=== PATIENT | female | born 1970 | race Caucasian/White ===

== ENCOUNTER 2025-08-04 09:32 | Outpatient (AMB) | payer OTHER, SELFPAY ==
--- NOTE | 2025-08-04 09:47 | MHC.PC.OV ---
Vital Signs 08/04/25 09:54 08/04/25 09:57 Height 5 ft 3.98 in Weight 318 lb 8 oz BMI 54.7 BP 146/74 H 146/72 H Blood Pressure Location Lt brachial Lt brachial Position Sitting Sitting Respiration 14 Pulse 75 Pulse Source Pulse Oximeter Temp 99 F Temp Source Oral Pulse Oximetry (%) 97 Oxygen Delivery Method Room Air Intake Visit Reasons: [employer]ST Requesting a PE Intake Note: New patient visit Card Clothier Required: No Allergies No Known Allergies Allergy (Verified 08/04/25 09:48) Tobacco use date assessed: 08/04/25 Dental Screening Dental Screen Date: 08/04/25 Did you have a dental visit in the last 12 months?: No Did you have a dental problem in the last 6 months where you did not have access to dental care?: No Was dental information given to patient?: Patient has dentist HPI HPI Comments History of Present Illness Details The patient is a 55 year old female with a past medical history of hypertension, hyperlipidemia, osteoarthritis presenting to [facility] & for CPE. Transferring from [facility]-records not yet received MSK: knee OA-left> right. Cortisone shots previously were not very helpful. Declines referral at present. Rosacea:Does not follow with dermatology but has seen them in the past Heme/Onc: Right breast lumpectomy & radiation. Dr Mcdaniel. Mammo 11/2024. Will follow up in November HOSPICE RN-referred today Tdap- ROS CONSTITUTIONAL: Denies weight loss, fever and chills. HEENT: Denies changes in vision and hearing. RESPIRATORY: Denies SOB and cough. CV: Denies palpitations and CP GI: Denies abdominal pain, nausea, vomiting and diarrhea. : Denies dysuria and urinary frequency. MSK: Denies new myalgia and joint pain. SKIN: Denies rash and pruritus. NEUROLOGICAL: Denies headache PSYCHIATRIC: Denies recent changes in mood. PHYSICAL EXAM: GENERAL: Alert and oriented x 3. NAD EYES: EOMI. Anicteric. HENT: Moist mucous membranes. No scleral icterus. No cervical lymphadenopathy. LUNGS: Clear to auscultation bilaterally. CARDIOVASCULAR: Regular rate and rhythm. No murmur. No JVD. ABDOMEN: Soft, non-tender +bs EXTREMITIES: No edema. Non-tender. SKIN: No rashes or lesions. Warm. NEUROLOGIC: No focal neurological deficits. CN II-XII grossly intact PSYCHIATRIC: Cooperative. Appropriate mood and affect [facility] Social History Housing: Apartment Patient Tobacco Use Status: Never used Tobacco e-Cigarette/Vaping Use: Never Used Second Hand Smoke Exposure: No service: No Current occupational status: employed Current occupation: [employer] Current occupational exposures/hazards: No Cognitive needs: No Hearing needs: No Vision needs: Yes (glasses) Questionnaire PHQ-9 Over the last 2 weeks, how often have you been bothered by any of the following problems? 1. Little interest or pleasure in doing things: not at all 2. Feeling down, depressed, or hopeless: not at all 3. Trouble falling or staying asleep, or sleeping too much: not at all 4. Feeling tired or having little energy: more than half the days 5. Poor appetite or overeating: more than half the days 6. Feeling bad about yourself - or that you are a failure or have let yourself or your family down: not at all 7. Trouble concentrating on things, such as reading the newspaper or watching television: not at all 8. Moving or speaking so slowly that other people could have noticed. Or the opposite - being so fidgety or restless that you have been moving around a lot more than usual: not at all 9. Thoughts that you would be better off or of hurting yourself in some way: not at all Total score: 4 Depression Screening Interpretation: Positive Depression Screening Done: Yes 28314 - PHQ-9 Billing: Yes Source: Developed by Drs. Rajeev Campuzano, Obdulia Mary, Benoit Wood and colleagues, with an educational jacqueline from [employer]. Thrive Questionnaire Date Thrive assessed: 07/28/25 I am a: Patient What is your living situation today?: I have a steady place to live Within the past 12 months, did the food you bought not last and you didn't have the money to get more?: Never true Within the past 12 months, did you worry whether your food would run out before you got money to buy more?: Never true Do you have trouble paying for medicines?: No Do you have trouble getting transportation to medical appointments?: No Do you have trouble paying your heating and electricity bill?: No Do you have trouble taking care of your child, family member or friend?: No Do you have trouble with day-to-day activities such as bathing, preparing meals, shopping, managing finances, etc.?: No Are you currently unemployed and looking for a job?: No Are you interested in more education?: No Please select the resources that you would like help with: None Currently or been in a relationship where the following occur: No concerns reported THRIVE Score: 0 AUDIT C Alcohol Use Questionnaire (AUDIT-C) 1. How often do you have a drink containing alcohol?: Monthly or less 2. How many drinks containing alcohol do you have on a typical day when you are drinking?: 1 or 2 3. How often do you have six or more drinks on one occasion?: Never Total Score: 1 CHICO-7 AMB Questionnaire CHICO-7 Date CHICO - 7 assessed: 08/04/25 Feeling nervous, anxious, or on edge: 0 = Not at all Not being able to stop or control worryin = Not at all Worrying too much about different things: 0 = Not at all Trouble relaxin = Not at all Being so restless that it is hard to sit still: 0 = Not at all Becoming easily annoyed or irritable: 0 = Not at all Feeling afraid as if something awful might happen: 0 = Not at all Total CHICO-7 score (0-4 normal; 5-9 mild; 10-14 moderate; 15-21 severe): 0 Source: Developed by Drs. Rajeev Campuzano, Obdulia Mary, Benoit Wood and colleagues, with an educational jacqueline from [employer]. CHICO-7 Assessment Billing CHICO-7 Assessment Tool: CHICO-7 Assessment 91609 Physical exam (Primary Care) Vital Signs: Last Vital Signs Temp 99 F 08/04/25 09:54 Pulse 75 08/04/25 09:54 Resp 14 08/04/25 09:54 BP 146/72 H 08/04/25 09:57 Pulse Ox 97 08/04/25 09:54 Oxygen Delivery Method Room Air 08/04/25 09:54 BMI result Body Mass Index 54.7 Tobacco/Smoking Status: Tobacco use Status Tobacco use date assessed 08/04/25 08/04/25 09:57 Patient Tobacco Use Status Never used Tobacco 08/04/25 09:57 e-Cigarette/Vaping Use Never Used 08/04/25 09:57 PHQ-9: PHQ-9 Score PHQ-9: Total score 4 08/04/25 10:10 Depression Screening Interpretation: Positive Thrive Assessment: Date of Thrive Assessment Date Thrive assessed 07/28/25 08/04/25 09:50 Currently or been in a relationship where the following occur: No concerns reported Coding Level of Care Code New Pt Level 4 (98414) Complex EM visit Add On G2211 Diagnoses Physical exam Z00.00 Additional Codes CHICO-7 Assessment Billing - CHICO-7 Assessment Tool: CHICO-7 Assessment 85808 ([id number]) PHQ-9 - 26525 - PHQ-9 Billing: Yes ([id number]) Assessment & Plan Assessment & Plan (1) Physical exam: Code(s): Z00.00 - Encounter for general adult medical examination without abnormal findings Category: Medical Plan 55 year old female to establish care Past medical surgical social reviewed HTN-controlled on current medications Preventive measures for age discussed Cologuard test ordered Referral placed to scanning supervisor Orders: Orders Comprehensive Met. Panel 08/04/25 E78.5 - Hyperlipidemia, unspecified, I10 - Essential (primary) hypertension, R35.89 - Other polyuria, Z13.0 - Encounter for screening for diseases of the blood and blood-forming organs and certain disorders involving the immune mechanism, Z13.228 - Encounter for screening for other metabolic disorders Lipid Panel 08/04/25 E78.5 - Hyperlipidemia, unspecified, I10 - Essential (primary) hypertension, R35.89 - Other polyuria, Z13.0 - Encounter for screening for diseases of the blood and blood-forming organs and certain disorders involving the immune mechanism, Z13.228 - Encounter for screening for other metabolic disorders Complete Blood Count Man Dif 08/04/25 E78.5 - Hyperlipidemia, unspecified, I10 - Essential (primary) hypertension, R35.89 - Other polyuria, Z13.0 - Encounter for screening for diseases of the blood and blood-forming organs and certain disorders involving the immune mechanism, Z13.228 - Encounter for screening for other metabolic disorders TSH reflex Free T4 08/04/25 E78.5 - Hyperlipidemia, unspecified, I10 - Essential (primary) hypertension, R35.89 - Other polyuria, Z13.0 - Encounter for screening for diseases of the blood and blood-forming organs and certain disorders involving the immune mechanism, Z13.228 - Encounter for screening for other metabolic disorders Hemoglobin A1c 08/04/25 E78.5 - Hyperlipidemia, unspecified, I10 - Essential (primary) hypertension, R35.89 - Other polyuria, Z13.0 - Encounter for screening for diseases of the blood and blood-forming organs and certain disorders involving the immune mechanism, Z13.228 - Encounter for screening for other metabolic disorders Referrals Cologuard Test Z12.11 - Encounter for screening for malignant neoplasm of colon, Z12.12 - Encounter for screening for malignant neoplasm of rectum PAY AGENT Referral Z12.4 - Encounter for screening for malignant neoplasm of cervix, Z85.3 - Personal history of malignant neoplasm of breast Medications: New losartan-hydrochlorothiazide 100-25 mg 1 tab PO DAILY 90 tabs 3RF doxycycline monohydrate 100 mg PO BID 180 tabs 3RF labetalol 200 mg PO BID 180 tabs 3RF atorvastatin 40 mg PO DAILY 90 tabs 3RF
[2025-08-04 09:54] VITALS: BP 146/74; PULSE 75; RESP 14; TEMP 37.2; O2SAT 97; BMI 54.7
[2025-08-04 09:57] VITALS: BP 146/72
--- OUTSIDE RECORDS SUMMARY | 2025-08-04 10:53 | XMS_ITS ---
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 Osteoarthritis of knee 12/04/2009 Pure hypercholesterolemia 01/12/2009 Depressive disorder 12/08/2008 Essential hypertension, benign 04/18/2007 Hyperlipidemia with target LDL less than 100 Overview (09/30/2024): IMO update Rosacea 04/18/2007 Current Treatment and Therapy Plans No current plan information found. Past Treatment and Therapy Plans No past plan information found. Current Radiation Episodes * Radiation Therapy: Right BreastOverview* First Treatment Date Latest Treatment Date Treatment Site Technique Goal Episode Provider 03/26/2025 04/22/2025 Right Breast Curative Reny Santana MD * Linked Problems Ductal carcinoma in situ (DC IS) of right breast Treatment Courses* Course 1 03/26/2025 - 04/22/2025 Treatment Sites Treatment Period Fraction Dose Fractions Total Dose Rt Breast Boost 04/17/2025 - 04/22/2025 250 / 250 cGy 1,000 / 1,000 cGy Right Breast 03/26/2025 - 04/16/2025 267 / 267 cGy 4,272 / 4,272 cGy
--- OUTSIDE RECORDS SUMMARY | 2025-08-04 10:53 | XMS_ITS | Clinical Summary ---
Author Organization [facility] [address] [place] [address] [place] [address] Phone Care Team Providers Care Roof Fitter Name Role Phone Gwendolyn Marcus MD Primary Care Provider [phone] Allergies No known active allergies Medications silver sulfADIAZINE (SILVADENE, SSD) 1 % cream Apply to affected area daily 400 g 2 04/11/20 25 026 Active losartan-hydroCH LOROthiazide (HYZAAR) 100-25 mg per tablet TAKE 1 TABLET BY MOUTH EVERY DAY 90 tablet 04/30/20 25 Active atorvastatin (LIPITOR) 40 mg tabletIndication s:Hyperlipidemia , unspecified TAKE 1 TABLET BY MOUTH EVERY DAY 90 tablet 04/30/20 25 Active doxycycline (MONODOX) 100 mg capsuleIndicatio ns:acne rosacea Take 1 capsule (100 mg total) by mouth 1 (one) time each day. Take with at least 8 ounces (large glass) of water, do not lie down for 30 minutes after. Administer 2 hours before or after multivitamins, antacids, or other products containing polyvalent cations (i.e., calcium, iron, magnesium, selenium, zinc). Active labetaloL (NORMODYNE) 200 mg tablet Take 1 tablet (200 mg total) by mouth 2 (two) times a day. 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 Osteoarthritis of knee 12/04/2009 Pure hypercholesterolemia 01/12/2009 Depressive disorder 12/08/2008 Essential hypertension, benign 04/18/2007 Hyperlipidemia with target LDL less than 100 Overview (09/30/2024): IMO update Rosacea 04/18/2007 Encounters Date Type Department Care Team Description 06/10/2025 9:20 AM EDT Office Visit Breast Care [address] [address] Nasreen Mcdaniel MD Ductal carcinoma in situ (DCIS) of right breast (Primary Dx) 06/05/2025 Telephone [facility] Hematology Oncology [address] [place] [phone] Jared CageCook Sta, [place] 05/28/2025 12:46 PM EDT - 05/28/2025 11:59 PM EDT Hospital Encounter [facility] Radiation Oncology [address] [place] [phone] Candelaria Dunham NP Ductal carcinoma in situ (DCIS) of right breast (Primary Dx) Discharge Disposition: Home or Self Care 05/07/2025 9:45 AM EDT Office Visit Adult Medicine [address] [address] Kevin Manriquez PA Primary hypertension (Primary Dx); Hyperlipidemia with target LDL less than 100; Rosacea from Last 3 Months Immunizations Immunization Administration Dates Next Due MMR, measles mumps and rubel la Live (Priorix; M-M-R II) 12mo and older 11/20/2018,10/18/2018,05/13/2002 Pfizer SARS-CoV-2 COVID-19, mRNA, LNP-S, preservative free 06/04/2021 Td Tetanus diptheria (Tdvax) 7yo and older 12/09 Tdap Tetanus diptheria acell ular pertussis (Boostrix; Adacel) 7yo and older 04/18/2007 Surgical History Surgery Date Site/Laterality Comments CHOLECYSTECTOMY 1998 PROCEDURE: HISTORICAL CHOLECYSTECTOMY TONSILLECTOMY 1989 PROCEDURE: HISTORICAL TONSILLECTOMY BREAST BIOPSY 01/10/2025 MASTECTOMY, PARTIAL Right 01/29/[address] Mcdaniel Medical History Medical History Date Comments Essential hypertension, benign 04/18/2007 D X:Essential hypertension, benign Obesity, unspecified 04/18/2007 DX:Obesity, unspecified Other and unspecified hyperlipidemia 04/18/2007 DX:Other and unspecified hyperlipidemia Rosacea 04/18/2007 DX:Rosacea Arthritis Joint pain LEFT >RIGHT KNEE Family History Medical History Relation Name Comments Coronary artery disease Brother sten t in [place] CABG Father 3v Hypertension Father Cancer Other mat 3rd cousin Lung cancer Paternal Grandmother Relation Name Status Comments Brother Alive Daughter Alive 1998; [place] Father Alive HTN; 3v CABG; h ypothyroid Maternal Grandfather stroke Maternal Grandmother Alive in [place]; age 86 Mother Alive hyperthyroid Other mat 3rd cousin Paternal Grandfather unk Paternal Grandmother cancer - bone Son Alive 2001 Social History Tobacco Use Types Packs/Day Years Used Date Smoking Tobacco: Never Smokeless Tobacco: Never Tobacco Cessation:Counseling Given: Not Answered Alcohol Use Standard Drinks/Week Comments Yes 0 (1 standard drink = 0.6 oz pur e alcohol) SOCIAL Interpersonal Safety Answer Date Record ed Physical Abuse Unrecognized value 01/29/2025 Verbal Abuse Unrecognized value 01/29/2025 Comments No Sex and Gender Information Value Date Recorded Sex Assigned at Female 01/24/2025 10:36 AM EDT Legal Sex Female 1:38 PM EST Gender Identity Female 01/24/2025 10:36 AM EDT Sexual Orientation Straight 01/24/2025 10 :36 AM EDT Occupation Industry Job Start Date Job End Date [employer] Not on file Not on file Not on file Obstetrics History Para Term AB IAB SAB Ectopic Multiple Livin g Live Births 2 2 2 2 2 Date Outcome GA Total Labor Labor/2nd/3rd Weight Sex Type Anes PTL Anita A1 A5 Name Clin 1998 Term M Living 2001 Term F Living Last Filed Vital Signs Vital Sign Reading Time Taken Comments Blood Pressure 169/79 06/10/2025 9:21 AM EDT Pulse 88 06/10/2025 9:21 AM EDT Temperature 36.1 C (97 F) 06/10/2025 9:21 AM EDT Respiratory Rate 20 05/28/2025 12:49 PM EDT Oxygen Saturation 98% 05/28/2025 12:49 PM EDT Inhaled Oxygen Concentration - - Weight 144 kg (317 lb) 06/10/2025 9:21 AM EDT Height 160 cm (5' 3 ) 05/28/2025 12:49 PM EDT Body Mass Index 56.15 05/28/2025 12:49 PM EDT Plan of Treatment Upcoming Encounters Date Type Department Care Team (Late st Contact Info) Description 12/03/2025 1:00 PM EST [facility]oint[facility] [address] [phone] 12/11/2025 1:20 PM EST Office Visit [address] [phone] Nasreen Mcdaniel MD [address] [place] [phone] Health Maintenance Due Date Last Done Comments Colorectal Cancer Screening: Colonoscopy 1970 Hepatitis B Vaccines (1 of 3 - 19+ 3-dose series) 1989 Pneumococcal Vaccine: 50+ Years (1 of 2 - PCV) 1989 Zoster Vaccines (1 of 2) 1989 COVID-19 Vaccine (3 - Pfizer risk series) 07/23/2021 06/25/2021, 06/04/2021 Social Influencers of Health Screening 10/08/2022 Cervical Cancer Screening: HPV 08/28/2024 08/28/2019 Depression Screening 10/30/2024 Influenza Vaccine (#1) 2025 Hypertension/CHF/CAD Annual BMP Blood Test 01/24/2026 01/24/2025, 06/12/2024, 06/12/2024 DTaP,Tdap,and Td Vaccines (3 - Td or Tdap) 12/09/2026 12/09/2016, 04/18/2007 Breast Cancer Screening 12/18/2026 12/18/19 25, 12/11/2024, 11/28/2023, Additional history exists Cholesterol Screening (Lipid Panel) 06/12/2029 06/12/2024, 06/12/2024 RSV Immunization Adult Patients (1 - 1-dose 75+ series) 2045 MMR Vaccines Aged Out 11/20/2018, 09/30, 05/13/2002 No longer eligible based on patient's age to complete this topic HIV Screening Completed 08/28/2019 Hepatitis C Screening Completed 08/28/2019 HIB Vaccines Aged Out No longer eligi ble based on patient's age to complete this topic HPV Vaccines Aged Out No longer eligi ble based on patient's age to complete this topic Hepatitis A Vaccines Aged Out No long er eligible based on patient's age to complete this topic IPV Vaccines Aged Out No longer eligi ble based on patient's age to complete this topic Meningococcal ACWY Vaccine Aged Out N o longer eligible based on patient's age to complete this topic Meningococcal B Vaccine Aged Out No l onger eligible based on patient's age to complete this topic RSV Immunization Patients Under 20 months Aged Out No longer eligible based on patient's age to complete this topic Varicella Vaccines Aged Out No longer eligible based on patient's age to complete this topic Medical Devices Implanted Type Area Pilot Boat Captain Device Identifier Shelf Expiration Date Model / Serial / Lot Marker 18ga Magseed 12cm - [id number] Implanted:Qty: 1 on 01/27/2025 by Zaire Kern MD at [facility] Implants Right: Breast DEVICOR [employer] [id number] 02/26/2027 [id number] Procedures Procedure Name Priority Date/Time Associated Diagnosis Comments BASIC METABOLIC PANEL Routine 01/24/2025 11:14 AM EDT Ductal carcinoma in situ (DCIS) of right breast MG MAMMO DIAGNOSTIC ADDL VIEWS RIGHT Routine 12/18/2024 9:09 AM EST Abnormal mammogram LIPID PANEL Routine 06/12/2024 HM HPV Routine 08/28/2019 HEPATITIS C SCREENING Routine 08/28/2019 HIV SCREENING Routine 08/28/2019 from Last 3 Months or Most Recently Relevant to Health Maintenance Results * Basic metabolic panel (01/24/2025 11:14 AM EDT) Sodium 142 133 - 145 mmol/L LAB CHEMISTRY METHOD 01/24/2025 12:[address] [facility] Potassium 3.5 3.5 - 5.5 mmol/L LAB CHEMISTRY METHOD 01/24/2025 12:[address] [facility] Chloride 107 96 - 110 mmol/L LAB CHEMISTRY METHOD 01/24/2025 12:[address] [facility] CO2 29 21 - 32 mmol/L LAB CHEMISTRY METHOD 01/24/2025 12:[address] [facility] Anion Gap 6 3 - 11 LAB CHEMISTRY METHOD 01/24/2025 12:[address] [facility] Glucose 76 70 - 100 mg/dL LAB CHEMISTRY METHOD 01/24/2025 12:[address] [facility] BUN 18 5 - 25 mg/dL LAB CHEMISTRY METHOD 01/24/2025 12:[address] [facility] Creatinine 0.54 0.50 - 1.10 mg/dL LAB CHEMISTRY METHOD 01/24/2025 12:[address] [facility] eGFR 110 >=60 mL/min/1. 73m2 LAB CHEMISTRY METHOD 01/24/2025 12:[address] [facility] Comment:Calculation based on the Chronic Kidney Disease Epidemiology Collaboration (CKD-EPI) equation refit without adjustment for race. BUN/Creatinine Ratio 33.3 LAB CHEMISTRY METHOD 01/24/2025 12:26 PM EDT [facility] Calcium 9.7 8.5 - 10.5 mg/dL LAB CHEMISTRY METHOD 01/24/2025 12:26 PM EDT [facility] Blood Venous blood specimen / Unknown Venipuncture / Unknown 01/24/2025 11:14 AM EDT 01/24/2025 11:35 AM EDT us Nasreen Mcdaniel MD LAB BLOOD ORDERABLES Final Resul t [facility] [address] [place] [address], [place] [phone] * (ABNORMAL) MG Mammo Diagnostic Addl Views Right (12/18/2024 9:09 AM EST) Anatomical Region Laterality Modality Breast Right Mammography 12/18/2024 9:21 AM EST Impressions 12/18/2024 9:29 AM EST 1. Lower inner middle depth calcifications are suspicious and require stereotactic biopsy 2. Scattered fibroglandular tissue BI-RADS CATEGORY: 4 - SUSPICIOUS Findings discussed with patient RECOMMENDATION: Core biopsy of right breast recommended. Stereotactic biopsy for lower inner middle depth calcifications -------- FINAL REPORT -------- Dictated By: Betito Addison Dictated Date: 12/18/2024 09:21 ET Assigned Physician: Betito Addison Reviewed and Electronically Signed By: Betito Addison Signed Date: 12/18/2024 09:29 ET Workstation ID: [id number] Transcribed By: Self Edit Transcribed Date: 12/18/2024 09:21 ET Narrative 12/18/2024 9:29 AM EST RIGHT DIGITAL 3D DIAGNOSTIC MAMMOGRAPHY HISTORY: Workup for lower inner middle depth calcifications COMPARISON: Mammogram from 12/11/2024 and 11/28/2023 Technique: CC, MLO and ML magnification views FINDINGS: BREAST DENSITY: B - There are scattered areas of fibroglandular density. Right breast lower inner middle depth calcifications are suspicious Procedure Note Betito Addison MD - 12/18/2024 RIGHT DIGITAL 3D DIAGNOSTIC MAMMOGRAPHY HISTORY: Workup for lower inner middle depth calcifications COMPARISON: Mammogram from 12/11/2024 and 11/28/2023 Technique: CC, MLO and ML magnification views FINDINGS: BREAST DENSITY: B - There are scattered areas of fibroglandular density. Right breast lower inner middle depth calcifications are suspicious IMPRESSION: 1. Lower inner middle depth calcifications are suspicious and requirestereotactic biopsy 2. Scattered fibroglandular tissue BI-RADS CATEGORY: 4 - SUSPICIOUS Findings discussed with patient RECOMMENDATION: Core biopsy of right breast recommended. Stereotactic biopsy for lowerinner middle depth calcifications -------- FINAL REPORT -------- Dictated By: Betito Addison Dictated Date: 12/18/2024 09:21 ET Assigned Physician: Betito Addison Reviewed and Electronically Signed By: Betito Addison Signed Date: 12/18/2024 09:29 ET Workstation ID: [id number] Transcribed By: Self Edit Transcribed Date: 12/18/2024 09:21 ET Gwendolyn Marcus MD IMG BI PROCEDURES Final Result * Lipid panel (06/12/2024) [facility] LDL/HDL Ratio 4 0 - 4 Triglycerides 142 0 - 150 mg/dL Cholesterol 170 0 - 200 mg/dL HDL 48 >=40 mg/dL LDL Cholesterol 94 0 - 100 mg/dL Blood Venous blood specimen / Unknown [facility] Provider LAB BLOOD ORDERABLES Mariann l Result * Cervical Cancer Screening: HPV (08/28/2019) [facility] Cervical Cancer Screening: HPV Negative, Abstracted [facility] Provider HEALTH MAINTENANCE Final Result * HIV Screening (08/28/2019) [facility] HIV Screening Abstracted [facility] Provider HEALTH MAINTENANCE Final Result * Hepatitis C Screening (08/28/2019) Hepatitis C Screening Abstracted us Historical Provider HEALTH MAINTENANCE Final Result from Last 3 Months or Most Recently Relevant to Health Maintenance Insurance [employer] Advance Directives * Full Code - Default (Latest Code Status on File) Date Activated Date Inactivated Comments 01/29/2025 9:11 AM 01/29/2025 3:56 PM This is order is used when code status has not been discussed with the patient, or code status is otherwise unknown/unconfirmed To update the patient's code status, place a code status order. Do not modify or discontinue any currently active code status orders. Care Teams Roof Fitter Relationship Specialty Start Date End Date Gwendolyn Marcus MD [address] [place] [address] PCP - General Internal Medicine 12/11/24
== END 2025-08-04 10:26 | disposition home or self-care (01) ==
LOC: HO.HMCFM 09:32
PROVIDERS: PCP Internal Medicine; Visit Provider Internal Medicine
DX: Z00.00 Encounter for general adult medical examination without abnormal findings (principal)

== ENCOUNTER 2025-08-04 09:32 | Outpatient (REF) | payer OTHER, SELFPAY ==
--- OUTSIDE RECORDS SUMMARY | 2025-08-04 12:34 | XMS_ITS | Encounter Summary ---
Author Organization [facility] Address [address] [place] [address] Care Team Providers Care Tool Repairer Bench Name Role Phone Amanda Becerra MD Primary Care Provider Gwendolyn Skaggs MD Primary Care Provider [phone] Encounter Details Date Type Department Care Team Description 03/26/2019 Release of Information Medical Records [address] [place] [address] Abstract, Provider Social History Tobacco Use Types Packs/Day Years Used Date Smoking Tobacco: Never Smokeless Tobacco: Never Alcohol Use Standard Drinks/Week Comments Yes 0 (1 standard drink = 0.6 oz pure alcohol) very rarely, once a month or so. Intimate Partner Violence Answer Date R ecorded Within the last year, have y ou been afraid of your partner or ex-partner? No 08/28/2019 Within the last year, have y ou been humiliated or emotionally abused in other ways by your partner or ex-partner? No Within the last year, have y ou been kicked, hit, slapped, or otherwise physically hurt by your partner or ex-partner? No 08/28/2019 Within the last year, have y ou been raped or forced to have any kind of sexual activity by your partner or ex-partner? No 08/28/2019 Sex Assigned at Date Recorded Not on file Job Start Date Occupation Industry Not on file Not on file Not on file documented as of this encounter Plan of Treatment Not on file documented as of this encounter Visit Diagnoses Not on filedocumented in this encounter Care Teams Tool Repairer Bench Relationship Specialty Start Date End Date Amanda Becerra MD PCP - General 11/03/08 06/27/22 Gwendolyn Marcus MD [address] [place] [address] PCP - General Internal Medicine 06/28/22 documented as of this encounter
--- OUTSIDE RECORDS SUMMARY | 2025-08-04 12:34 | XMS_ITS | Encounter Summary ---
Author Organization [facility] Address [address] [place] [address] Care Team Providers Care Toggler Name Role Phone Amanda Becerra MD Primary Care Provider Aurora James MD Primary Care Provider [facility], [facility] Primary Care Provider [facility] Vinnie Moon Primary Care Provider [phone] Eva Sanabria Primary Care Provider [phone] Delmis Morataya Primary Care Provider [phone] Gwendolyn Marcus MD Primary Care Provider [phone] Encounter Details Date Type Department Care Team Description 06/02/1999 [employer] General Surgery [address] [place] [phone] Samantha Gonzalez [address] [place] [address] CALCULUS OF GALLBLADDER WITH OTHER CHOLECYSTITIS, WITHOUT MENTION OF OBSTRUCTION Social History Tobacco Use Types Packs/Day Years Used Date Smoking Tobacco: Never Assessed Intimate Partner Violence Answer Date R ecorded [...] on file documented as of this encounter Procedures Procedure Name Priority Date/Time Associated Diagnosis Comments LAPAROSCOPY, CHOLECYSTECTOMY 06/02/1999 12:00 AM EDT Calculus Of Gallbladder With Other Cholecystitis, Without Mention Of Obstruction documented in this encounter Visit Diagnoses Diagnosis Calculus of gallbladder with other cholecystitis, without mention of obstruction documented in this encounter Care Teams Toggler Relationship Specialty Start Date End Date Amanda Becerra MD PCP - General 11/03/08 06/27/22 Aurora Garcia MD PCP - General 04/02/07 [facility] PCP - General 11/18/06 04/01/07 Vinnie Fraser [address] [place] [address] PCP - General 03/28/02 11/17/[address] [address] PCP - General 05/01/01 03/27/02 Delmis Morataya [address] [place] [address] PCP - General 11/02/1998 04/30/01 Gwendolyn Marcus MD [address] [place] [address] PCP - General Internal Medicine 06/28/22 documented as of this encounter
--- OUTSIDE RECORDS SUMMARY | 2025-08-04 12:34 | XMS_ITS | Encounter Summary ---
Author Organization [facility] Address [address] [place] [address] Care Team Providers Care Roll Press Operator Name Role Phone Amanda Becerra MD Primary Care Provider Gwendolyn Skaggs MD Primary Care Provider [phone] Encounter Details Date Type Department Care Team Description 11/16/2021 Contractor Field Hauling Report Medical Records [address] [place], [place] [phone] [place] [address] [phone] Social History Tobacco Use Types Packs/Day Years [...] on filedocumented in this encounter Care Teams Roll Press Operator Relationship Specialty Start Date End Date Amanda Becerra MD PCP - General 11/03/08 06/27/22 Gwendolyn Marcus MD [address] [place] [phone] PCP - General Internal Medicine 06/28/22 documented as of this encounter
--- OUTSIDE RECORDS SUMMARY | 2025-08-04 12:34 | XMS_ITS | Encounter Summary ---
Author Organization [facility] Address [address] [place] [address] Care Team Providers Care Stenographic Court Reporter Name Role Phone Amanda Becerra MD Primary Care Provider Gwendolyn Skaggs MD Primary Care Provider [phone] Reason for Visit * Reason Onset Date Comments Call From Pharmacy 09/30/2013 Encounter Details Date Type Department Care Team Description 09/30/2013 Telephone Medicine/Pediatrics [address] [phone] Amanda Becerra MD Call From Pharmacy Social History Tobacco Use Types Packs/Day Years Used Date Smoking Tobacco: Never Alcohol Use Standard Drinks/Week Comments No 0 (1 standard drink = 0.6 oz pur e alcohol) Intimate Partner Violence Answer Date R ecorded [...] on file documented as of this encounter Miscellaneous Notes * Telephone Encounter - Starr Cain Rn - 09/30/2013 4:34 PM EST Please review, message below Current Outpatient Prescriptions Medication Sig Dispense Refill ??? pravastatin (PRAVACHOL) 80 MG tablet TAKE 1 TABLET BY MOUTH EVERY DAY 30 Tab 5 ??? Sulfacetamide Sodium 10 % LOTN Apply 1 Each topically 2 times daily. 120 mL 11 ??? atorvastatin (LIPITOR) 40 MG tablet Take 1 Tab by mouth daily. 30 Tab 5 ??? doxycycline (VIBRA-TABS) 100 MG tablet TAKE 1 TABLET BY MOUTH TWICE A DAY 60 Tab 3 * Telephone Encounter - Racquel Pak - 09/30/2013 4:22 PM EST Eriberto from [facility] pharmacy calling states they received scripts for pravastatin and atorvastatin and unsure which patient is taking. documented in this encounter Plan of Treatment Not on file documented as of this encounter Visit Diagnoses Not on filedocumented in this encounter Care Teams Stenographic Court Reporter Relationship Specialty Start Date End Date Amanda Becerra MD PCP - General 11/03/08 06/27/22 Gwendolyn Marcus MD [address] [place] [phone] PCP - General Internal Medicine 06/28/22 documented as of this encounter
--- OUTSIDE RECORDS SUMMARY | 2025-08-04 12:34 | XMS_ITS | Encounter Summary ---
Author Organization [facility] Address [address] [place] [address] Care Team Providers Care On Call Name Role Phone Amanda Becerra MD Primary Care Provider Gwendolyn Skaggs MD Primary Care Provider [phone] Encounter Details Date Type Department Care Team Description 02/15/2019 Release of Information Medical Records [address] [place] [phone] Abstract, Provider Social History Tobacco Use Types [...] on filedocumented in this encounter Care Teams On Call Relationship Specialty Start Date End Date Amanda Becerra MD PCP - General 11/03/08 06/27/22 Gwendolyn Marcus MD [address] [place] [phone] PCP - General Internal Medicine 06/28/22 documented as of this encounter
--- OUTSIDE RECORDS SUMMARY | 2025-08-04 12:34 | XMS_ITS | Encounter Summary ---
Author Organization [facility] Address [address] [place] [address] Care Team Providers Care Lubricating Machine Tender Name Role Phone Amanda Becerra MD Primary Care Provider Gwendolyn Skaggs MD Primary Care Provider [phone] Encounter Details Date Type Department Care Team Description 06/27/2016 Adjuster Report Medical Records [address] [place] [phone] Celio Ireland MD Social History Tobacco Use Types Packs/Day Years [...] on filedocumented in this encounter Care Teams Lubricating Machine Tender Relationship Specialty Start Date End Date Amanda Becerra MD PCP - General 11/03/08 06/27/22 Gwendolyn Marcus MD [address] [place] [address] PCP - General Internal Medicine 06/28/22 documented as of this encounter
--- OUTSIDE RECORDS SUMMARY | 2025-08-04 12:34 | XMS_ITS | Encounter Summary ---
Author Organization [facility] Address [address] [place] [address] Care Team Providers Care Cinder Pit Crane Operator Name Role Phone Amanda Becerra MD Primary Care Provider Gwendolyn Skaggs MD Primary Care Provider [phone] Reason for Visit * Reason Onset Date Comments Abnormal Ekg-cardiology Overread 11/28/2018 final ekg read Encounter Details Date Type Department Care Team Description 11/28/2018 Telephone Cardiology - [place] [address] [place] [address] Corie Castro PA-C Abnormal Ekg-cardiology Overread (final ekg read) Social History Tobacco Use Types Packs/Day Years [...] encounter Miscellaneous Notes * Telephone Encounter - Carol Loja M.A. - 11/28/2018 4:21 PM EST See EKG on your desk - corrections made by Jono. * Telephone Encounter - Lachelle Alas M.A. - 11/28/2018 3:27 PM EST EKG reviewed by Steve Lincoln M.D.; corrections have been noted on EKG, which has been faxed to the office of Dr. Castro. documented in this encounter Plan of Treatment Not on file documented as of this encounter Visit Diagnoses Not on filedocumented in this encounter Care Teams Cinder Pit Crane Operator Relationship Specialty Start Date End Date Amanda Becerra MD PCP - General 11/03/08 06/27/22 Gwendolyn Marcus MD [address] [place] [address] PCP - General Internal Medicine 06/28/22 documented as of this encounter
--- OUTSIDE RECORDS SUMMARY | 2025-08-04 12:34 | XMS_ITS | Encounter Summary ---
Author Organization [facility] Address [address] [place] [address] Care Team Providers Care Rebar Bender Name Role Phone Amanda Becerra MD Primary Care Provider Gwendolyn Skaggs MD Primary Care Provider [phone] Encounter Details Date Type Department Care Team Description 08/02/2012 Telephone Medicine/Pediatrics - [address] [phone] Amanda Becerra MD Social History Tobacco Use Types Packs/Day [...] encounter Miscellaneous Notes * Telephone Encounter - Vidhya Urrutia MD - 08/02/2012 12:27 PM EDT [place], orderd. * Telephone Encounter - Su Helms M.A. - 08/02/2012 11:24 AM EDT Dori Bryant PA-C in cardiology is looking for a nuclear test order. Please add. Thank You documented in this encounter Plan of Treatment Not on file documented as of this encounter Visit Diagnoses Diagnosis Chest pain- Primary Chest pain, unspecified documented in this encounter Care Teams Rebar Bender Relationship Specialty Start Date End Date Amanda Becerra MD PCP - General 11/03/08 06/27/22 Gwendolyn Marcus MD [address] [place] [address] PCP - General Internal Medicine 06/28/22 documented as of this encounter
--- OUTSIDE RECORDS SUMMARY | 2025-08-04 12:34 | XMS_ITS | Clinical Summary ---
Author Organization [facility] Address [address] [place] [address] Care Team Providers Care Four Slide Machine Operator Name Role Phone Gwendolyn Marcus MD Primary Care Provider [phone] Allergies No known active allergies Medications Medication Sig Dispensed Refills Start Date End Date Status Doxycycline Monohydrate (ADOXA) 100 MG tablet Take 1 Tablet by mouth 2 times daily. For 2-4 weeks during flares only 60 Tablet 0 06/05/2024 Active atorvastatin (LIPITOR) 40 MG tabletIndications:Hyp erlipidemia with target LDL less than 100 TAKE 1 TABLET BY MOUTH EVERY DAY 90 Tablet 1 07/29/2024 Active losartan-hydrochlorot hiazide (HYZAAR) 100-25 MG per tablet TAKE 1 TABLET BY MOUTH EVERY DAY 90 Tablet 1 07/29/2024 Active labetalol (NORMODYNE) 200 MG tablet Take 1 Tablet by mouth 3 times daily. 270 Tablet 1 08/29/2024 Active Active Problems Problem Noted Date IFG (impaired fasting glucose) 9 Morbid obesity 11/07/2013 Overview: BMI 43.84 on 09/23/13. FH: premature coronary heart disease 10/2011 Overview: Brother age 39 stent Osteoarthritis of knee 12/04/2009 Pure hypercholesterolemia 01/12/2009 Depressive disorder, not elsewhere class ified 12/08/2008 Essential hypertension, benign 7 Hyperlipidemia LDL goal < 100 04/18/2007 Overview: IMO update [place]ida 04/18/2007 Immunizations Name Administration Dates Next Due COVID-19 (Pfizer) Pt Reported 06/25/2021, 021 MMR ([id number]) 11/20/2018, 8,05/13/2002 TD (STATE SUPPLIED FOR ADULTS AND CHILDREN) 11/30 Tdap 04/18/2007 Family History Medical History Relation Name Comments CAD Brother stent in L main CABG Father 3v Hypertension Father CA Breast Other mat 3rd cousin Cancer of the Lung Paternal Grandmother Relation Name Status Comments Brother Alive Daughter Alive 1998; [place] Father Alive HTN; 3v CABG; h ypothyroid Maternal Grandfather stroke Maternal Grandmother Alive in [place]; age 86 Mother Alive hyperthyroid Other mat 3rd cousin Alive Paternal Grandfather unk Paternal Grandmother cancer - [...] file Not on file Not on file Last Filed Vital Signs Vital Sign Reading Time Taken Comments Blood Pressure 116/64 06/05/2024 9:34 AM EDT Pulse 78 06/05/2024 9:34 AM EDT Temperature 36.6 C (97.8 F) 06/05/2024 9:34 AM EDT Respiratory Rate 14 06/05/2024 9:34 AM EDT Oxygen Saturation - - Inhaled Oxygen Concentration - - Weight 146.5 kg (323 lb) 06/05/2024 9:34 AM EDT Height 160 cm (5' 3 ) 06/05/2024 9:34 AM EDT Body Mass Index 57.22 06/05/2024 9:34 AM EDT Plan of Treatment Health Maintenance Due Date Last Done Comments COLON CANCER SCREENING 2020 SHINGLES VACCINE (1 of 2) 2020 BASELINE HEALTH EXAM 40-64 10/15/202010/15, 10/15/2018, 02/01/2016, Additional history exists CERVICAL CANCER SCREENING 08/28/20222018, 04/29/2013 (External Completion of test per patient (Patient reports normal results)), 03/30/2009 (External Completion), Additional history exists BMI CHECK/ADVISE 10/30/2024 12/06/2023, , 12/13/2022, Additional history exists MAMMOGRAM 11/28/2024 11/28/2023, 10/31, 10/12/2021, Additional history exists Covid-19 Vaccine (3 - 2022-2 4 season) 2025 06/25/2021, 06/04/2021 INFLUENZA (#1) 2025 DTAP/TDAP/TD (3 - Td or Tdap) 12/09/2026 12/09/2016, 04/18/2007 CHOLESTEROL SCREENING 06/12/2029 06/12/2024 , 12/13/2023, 06/27/2023, Additional history exists PNEUMOCOCCAL VACCINE FOR HIG H RISK PATIENTS (#1) 2035 Care Teams Four Slide Machine Operator Relationship Specialty Start Date End Date Gwendolyn Marcus MD [address] [place] [address] [id number] PCP - General Internal Medicine 06/28/22
--- OUTSIDE RECORDS SUMMARY | 2025-08-04 12:34 | XMS_ITS | Encounter Summary ---
Author Organization [facility] Address [address] [place] [address] Care Team Providers Care Race Board Attendant Name Role Phone Amanda Becerra MD Primary Care Provider Gwendolyn Skaggs MD Primary Care Provider [phone] Encounter Details Date Type Department Care Team Description 10/28/2021 Sleeve Maker Report Medical Records [address] [place] [address] Barry Ford, PAKareyC Social History Tobacco Use Types Packs/Day Years [...] file Not on file Not on file COVID-19 Exposure Response Date Recorded In the last month, have you been in contact with someone who was confirmed or suspected to have Coronavirus / COVID-19? No / Unsure 10/12/2021 4:21 PM EST documented as of this encounter Plan of Treatment Not on file documented as of this encounter Visit Diagnoses Not on filedocumented in this encounter Care Teams Race Board Attendant Relationship Specialty Start Date End Date Amanda Becerra MD PCP - General 11/03/08 06/27/22 Gwendolyn Marcus MD [address] [place] [id number] PCP - General Internal Medicine 06/28/22 documented as of this encounter
--- OUTSIDE RECORDS SUMMARY | 2025-08-04 12:34 | XMS_ITS | Encounter Summary ---
Author Organization [facility] Address [address] [place] [address] Care Team Providers Care Melting Operator Name Role Phone Amanda Becerra MD Primary Care Provider Gwendolyn Skaggs MD Primary Care Provider [phone] Encounter Details Date Type Department Care Team Description 12/11/2019 Pt. Non Urgent Medical Question Medicine/Pediatrics - [address] [phone] Amanda Becerra MD Right flank pain (Primary Dx) Social History Tobacco Use Types Packs/Day Years [...] on file documented as of this encounter Progress Notes * Claudette Landin L.P.N. - 12/12/2019 9:04 AM ESTFrom: Rahel Higginbotham To: Amanda Becerra MD Sent: 12/11/2019 7:51 PM EST Subject: Blood results Hi Dr. Becerra, I received my blood test results but am still wondering about results from the pain in my side. Possible ultrasound? Just concerned. Thank you. Rahel documented in this encounter Plan of Treatment Not on file documented as of this encounter Results * SONO ABDOMEN COMPLETE (12/24/2019 8:20 AM EST) 12/24/2019 10:5 2 AM EST Impressions BERTIN CHAVES OTHER EXTERNAL - 12/24/2019 11:00 AM EST IMPRESSION: Dilatation of the right renal pelvis without overt hydronephrosis. An extrarenal pelvis is possible. As symptoms are referable to the right kidney, CT could be performed to assess for urinary tract stones. Mild hepatomegaly. Echogenic hepatic parenchyma which can be seen with fatty liver and chronic hepatocellular disease. Gallbladder is surgically absent. No biliary ductal dilatation. POS [id number] Narrative BERTIN CHAVES OTHER EXTERNAL - 12/24/2019 11:00 AM EST EXAM: Abdominal ultrasound. HISTORY: Right flank pain COMPARISON: None FINDINGS: Exam limited by patient body habitus. Liver: Mildly enlarged measuring 19 cm in craniocaudad extent. Parenchyma may be mildly echogenic. No mass detected. Gallbladder/Biliary Tree: Gallbladder surgically absent. No intra or extrahepatic biliary ductal dilatation.The common bile duct measures 0.2 cm. Pancreas: No abnormality detected in the visualized pancreas, the tail is obscured by bowel gas. Spleen: Homogeneous and not enlarged. It is measured at 8.5 cm. Kidneys: Normal in size with the right measuring 13.0 cm and the left measuring 12.7 cm in craniocaudad extent. Dilatation of the right renal pelvis up to 1.3 cm in diameter without calyceal dilatation. No focal lesion or shadowing stone in either kidney. Vasculature: No abdominal aortic aneurysm. Hepatopedal flow in the main portal vein. Procedure Note Gianna Collazo MD - 02/25/2020 EXAM: Abdominal ultrasound. HISTORY: Right flank pain COMPARISON: None FINDINGS: Exam limited by patient body habitus. Liver: Mildly enlarged measuring 19 cm in craniocaudad extent. Parenchymamay be mildly echogenic. No mass detected. Gallbladder/Biliary Tree: Gallbladder surgically absent. No intra orextrahepatic biliary ductal dilatation.The common bile duct measures 0.2 cm. Pancreas: No abnormality detected in the visualized pancreas, the tail isobscured by bowel gas. Spleen: Homogeneous and not enlarged. It is measured at 8.5 cm. Kidneys: Normal in size with the right measuring 13.0 cm and the leftmeasuring 12.7 cm in craniocaudad extent. Dilatation of the right renal pelvis up to 1.3 cm indiameter without calyceal dilatation. No focal lesion or shadowing stone in eitherkidney. Vasculature: No abdominal aortic aneurysm. Hepatopedal flow in the mainportal vein. IMPRESSION IMPRESSION: Dilatation of the right renal pelvis without overt hydronephrosis. Anextrarenal pelvis is possible. As symptoms are referable to the right kidney, CT could beperformed to assess for urinary tract stones. Mild hepatomegaly. Echogenic hepatic parenchyma which can be seen withfatty liver and chronic hepatocellular disease. Gallbladder is surgically absent. No biliary ductal dilatation. POS [id number] Amanda Becerra MD ULTRASOUND WHITE POND OTHER EXTERNAL documented in this encounter Visit Diagnoses Diagnosis Right flank pain- Primary Abdominal pain, unspecified site Right flank pain Abdominal pain, unspecified site documented in this encounter Care Teams Melting Operator Relationship Specialty Start Date End Date Amanda Becerra MD PCP - General 11/03/08 06/27/22 Gwendolyn Marcus MD [address] [place] [id number] PCP - General Internal Medicine 06/28/22 documented as of this encounter
--- OUTSIDE RECORDS SUMMARY | 2025-08-04 12:34 | XMS_ITS | Encounter Summary ---
Author Organization [facility] Address [address] [place] [address] Care Team Providers Care Electric Melt Operator Name Role Phone Gwendolyn Marcus MD Primary Care Provider [phone] Reason for Visit * Reason Comments E-prescribe Rx Request Encounter Details Date Type Department Care Team Description 07/29/2024 Refill Adult Medicine [address] [address] Gwendolyn Marcus MD [address] [place] [address] E-prescribe Rx Request Social History Tobacco Use Types Packs/Day Years [...] encounter Miscellaneous Notes * Telephone Encounter - Kevin Manriquez PA-C - 07/29/2024 5:11 PM EDT Ok to fill. Rojas, Elena * Telephone Encounter - Grace Dela Cruz M.A. - 07/29/2024 3:06 PM EDT Last office visit 06/05/24 Next office visit 12/04/24 Lab Results Component Value Date NA 142 06/12/2024 K 3.6 06/12/2024 CO2 29 06/12/2024 CL 105 06/12/2024 BUN 16 06/12/2024 CREAT 0.78 06/12/2024 GLU 105 06/12/2024 CA 9.6 06/12/2024 GFR 91 06/12/2024 Lab Results Component Value Date CHOL 170 06/12/2024 LDL 94 06/12/2024 HDL 48 06/12/2024 TRIG 142 06/12/2024 SGOT 21 06/12/2024 SGPT 26 06/12/2024 * Telephone Encounter - Alem Fish - 07/29/2024 7:34 AM EDT Patient would like script to be: E-PRESCRIBED/FAXED TO PHARMACY WHEN WAS THE PATIENT'S LAST APPOINTMENT IN ADULT MEDICINE? 06/05/24 WHEN WAS THE LAST TIME THE PATIENT SAW THEIR PCP? Same as above Does patient have an upcoming appointment? Yes 12/04/24 w/pcp (THE MEDICATION REQUESTED IS ON THE MED LIST ABOVE) All of the medications requested were on the CURRENT MEDS list Did you check the Pharmacy information above?: YES Patient wants: 90 -day supply Is this a mail order prescription request ? NO If the refill is from a FAXED refill request what is the RX # listed on the fax? N/A Patients current insurance carrier is: Payor: [employer] / Plan: POS $35 [place] [id number] / Product Type: POS [id number] documented in this encounter Plan of Treatment Not on file documented as of this encounter Visit Diagnoses Diagnosis Hyperlipidemia LDL goal < 100 Other and unspecified hyperlipidemia documented in this encounter Care Teams Electric Melt Operator Relationship Specialty Start Date End Date Gwendolyn Marcus MD [address] [place] [id number] PCP - General Internal Medicine 06/28/22 documented as of this encounter
--- OUTSIDE RECORDS SUMMARY | 2025-08-04 12:34 | XMS_ITS | Encounter Summary ---
Author Organization [facility] Address [address] [place] [address] Care Team Providers Care Steam Trap Worker Name Role Phone Amanda Becerra MD Primary Care Provider Gwendolyn Skaggs MD Primary Care Provider [phone] Encounter Details Date Type Department Care Team Description 12/05/2018 Transfer Records Medical Records [address] [place] [address] Abstract, Provider Social History Tobacco Use Types [...] on filedocumented in this encounter Care Teams Steam Trap Worker Relationship Specialty Start Date End Date Amanda Becerra MD PCP - General 11/03/08 06/27/22 Gwendolyn Marcus MD [address] [place] [id number] PCP - General Internal Medicine 06/28/22 documented as of this encounter
--- OUTSIDE RECORDS SUMMARY | 2025-08-04 12:35 | XMS_ITS | Encounter Summary ---
Author Organization [facility] Address [address] [place] [address] Care Team Providers Care Brickmason Apprentice Name Role Phone Amanda Becerra MD Primary Care Provider Gwendolyn Skaggs MD Primary Care Provider [phone] Encounter Details Date Type Department Care Team Description 08/12/2016 Release of Information Medical Records [address] [place] [id number] Abstract, Provider Social History Tobacco Use Types [...] on filedocumented in this encounter Care Teams Brickmason Apprentice Relationship Specialty Start Date End Date Amanda Becerra MD PCP - General 11/03/08 06/27/22 Gwendolyn Marcus MD [address] [place] [id number] PCP - General Internal Medicine 06/28/22 documented as of this encounter
--- OUTSIDE RECORDS SUMMARY | 2025-08-04 12:35 | XMS_ITS | Encounter Summary ---
Author Organization [facility] Address [address] [place] [address] Care Team Providers Care Hand Dry Cleaner Name Role Phone Amanda Becerra MD Primary Care Provider Unava Aurora Alberto MD Primary Care Provider Unavailable [facility], Pcp [facility] V[facility] Moon Primary Care Provider [phone] Eva Sanabria Primary Care Provider Delmis Morataya Primary Care Provider Delmis Morataya Primary Care Provider [phone] Germán Hernandez MD Primary Care Provider Unavail able Gwendolyn Marcus MD Primary Care Provider [phone] Encounter Details Date Type Department Care Team Description 09/26/1998 [facility] [address] [place] [address] Jose Manuel Glover CALCULUS OF GALLBLADDER WITHOUT MENTION OF CHOLECYSTITIS, WITHOUT MENTION OF OBSTRUCTION; ABDOMINAL PAIN, RIGHT UPPER QUADRANT; ABDOMINAL PAIN, EPIGASTRIC Social History Tobacco Use Types Packs/Day Years [...] as of this encounter Visit Diagnoses Diagnosis Calculus of gallbladder without mention of cholecystitis or obstruction Abdominal pain, right upper quadrant Abdominal pain, epigastric documented in this encounter Care Teams Hand Dry Cleaner Relationship Specialty Start Date End Date Amanda Becerra MD PCP - General 11/03/08 06/27/22 Ksenia-Aurora Bryan MD PCP - General 04/02/07 [facility] PCP - General 11/18/06 04/01/07 Vinnie Fraser [address] [place] [address] PCP - General 03/28/02 11/17/[address] [address] PCP - General 05/01/01 03/27/02 Delmis Morataya [address] [place] [id number] PCP - General 11/02/1998 04/30/[address] [address] PCP - General 10/30/1998 11/01/1998 Germán Hernandez MD PCP - General 06/01/1998 10/29/1998 Gwendolyn Marcus MD [address] [place] [id number] PCP - General Internal Medicine 06/28/22 documented as of this encounter
--- OUTSIDE RECORDS SUMMARY | 2025-08-04 12:35 | XMS_ITS | Encounter Summary ---
Author Organization [facility] Address [address] [place] [address] Care Team Providers Care Fire Sprinkler Designer Name Role Phone Amanda Becerra MD Primary Care Provider Gwendolyn Skaggs MD Primary Care Provider [phone] Encounter Details Date Type Department Care Team Description 08/15/2016 Client Services Specialist Report Medical Records [address] [place] [address] Celio Ireland MD Social History Tobacco Use [...] on filedocumented in this encounter Care Teams Fire Sprinkler Designer Relationship Specialty Start Date End Date Amanda Becerra MD PCP - General 11/03/08 06/27/22 Gwendolyn Marcus MD [address] [place] [id number] PCP - General Internal Medicine 06/28/22 documented as of this encounter
[2025-08-04 14:49] LABS: Baso%MD 0.8 %; Eos%MD 8.6 %; Hematocrit 37.1 % (37.0-47.0); Hemoglobin 12.2 g/dl (12.0-16.0); IG%MD 0.6 %; Lymph%MD 11.8 %; Mean Corpuscular HGB Conc 32.9 g/dl (31.0-35.0); Mean Corpuscular Hemoglobin 27.4 pg (27.0-33.0); Mean Corpuscular Volume 83.2 fL (80.0-98.0); Mono%MD 7.9 %; NRBC Abs Auto 0.000 X10*3/uL (0.0-0.012); NRBC Pct Auto 0.0 /100WBC (0.0-0.2); Neut%MD 70.3 %; Platelet Count 335 X10*3/uL (160-400); Red Blood Count 4.46 X10*6/uL (4.20-5.50); White Blood Count 10.2 X10*3/uL (4.8-10.8)
[2025-08-04 15:16] LABS: Alanine Aminotransferase 20 U/L (0-31); Albumin Level 4.5 g/dL (3.5-5.0); Alkaline Phosphatase 104 U/L (39-117); Anion Gap 14 (12-20); Aspartate Amino Transferase 23 U/L (5-31); Blood Urea Nitrogen 18 mg/dL (9-16); Calcium 9.6 mg/dL (8.4-10.2); Carbon Dioxide 27 mmol/L (22-29); Chloride 104 mmol/L (96-108); Cholesterol 186 mg/dL (<200); Estimated Glomerular Filt Rate > 60; HDL Cholesterol 42 mg/dL (>40); Potassium 4.0 mmol/L (3.3-5.1); Sodium 141 mmol/L (135-145); Total Protein 6.9 g/dL (6.5-8.0); Triglycerides 140 mg/dL (<150)
[2025-08-04 15:26] LABS: Band Neutrophils Percent 2 % (3-5); Basophils Abs Manual 0.4 X10*3/uL (0.0-0.2); Basophils Percent Manual 4 % (0-2); Eosinophils Absolute Manual 0.5 X10*3/uL (0.0-0.4); Eosinophils Percent Manual 5 % (0-4); Lymphocytes Absolute Manual 0.5 X10*3/uL (1.2-4.9); Lymphocytes Percent Manual 5 % (20-40); Monocytes Absolute Manual 0.6 X10*3/uL (0.1-1.2); Monocytes Percent Manual 6 % (2-11); Neutrophils Absolute Manual 8.2 X10*3/uL (2.0-8.3); Neutrophils Percent Manual 78 % (45-73)
[2025-08-04 15:27] LABS: RBC Morphology NOTED
[2025-08-04 15:28] LABS: Macrocytosis 1+ (5-14) /OIF
== END 2025-08-04 09:33 | disposition home or self-care (01) ==
LOC: HO.WFDLDS 09:32
PROVIDERS: PCP Internal Medicine; Visit Provider Internal Medicine
DX: Z00.00 Encounter for general adult medical examination without abnormal findings (principal); I10 Essential (primary) hypertension; E78.5 Hyperlipidemia, unspecified; Z13.228 Encounter for screening for other metabolic disorders; Z13.0 Encounter for screening for diseases of the blood and blood-forming organs and certain disorders involving the immune mechanism; R35.89 Other polyuria
CPT/HCPCS: 36415; 80053; 80061; 83036; 84443; 85007; 85027; 96127